=== PATIENT | male | born 1995 | race Caucasian/White ===

== ENCOUNTER 2016-07-22 09:55 | Emergency (ER) | payer OTHER ==
--- NOTE | 2016-07-22 10:38 | ED CLINICAL REPORT ---
Clinical Report - Physicians/Mid Levels [facility] [address] [place] [address] 07/22/2016 9:56 Patient: JACY SAGASTUME Time Seen: 10:15; initial patient contact. Arrived- By private vehicle. Historian- patient. HISTORY OF PRESENT ILLNESS Chief Complaint: CHEST PAIN. At its maximum, severity described as mild. When seen in the E.D., it was almost gone. Modifying factors- worsened by movement, cough and deep breaths. Not relieved by anything. It is described as pressure and it is described as located in the left costal cartilage area. No radiation. This started last night and is still present but is improving. The patient cannot recall the circumstances at the onset. No nausea, vomiting, difficulty breathing or diaphoresis. Similar symptoms previously: None. Recent medical care: Not recently seen/assessed. REVIEW OF SYSTEMS No fever, chills, cough, pedal edema or calf pain. No fainting episodes. All systems otherwise negative, except as recorded above. PAST HISTORY Depression. Asthma. SURGERIES: Tympanostomy Tubes. SOCIAL HISTORY Former smoker. Occasional alcohol use. History of drug use: marijuana. ADDITIONAL NOTES The nursing notes have been reviewed. PHYSICAL EXAM Vital Signs: 07/22/2016 10:02 BP: 123/68. HR: 76. RR: 18. O2 saturation: 100%. Temp: 97.7 F. Pain level now: 110. Have been reviewed as normal. Appearance: Alert. Oriented X3. No acute distress. ENT: Pharynx normal. CVS: Normal heart rate and rhythm. Heart sounds normal. Respiratory: No respiratory distress. Chest pain reproducible with palpation of the costochondral junction, with movement of the left arm and with deep breathing. Mild left upper and mid- costochondral tenderness. The tenderness is well-localized and reproduces the patient's subjective complaint. Breath sounds normal. Abdomen: Soft and nontender. Bowel sounds normal. Skin: Normal skin color. Neuro: Oriented X 3. LABS, X-RAYS, AND EKG EKG: EKG time: (1012). No acute process. No acute ischemia. Normal sinus rhythm. Rate: 80. Normal P waves. Normal ANNE. Normal QRS complex. Normal ST and T waves, QT and QTc. Prior EKG unavailable. The study has been interpreted contemporaneously by me. The study has been independently viewed by me. The EKG appears to be a good tracing. Interpretation time: 1012. PROGRESS AND PROCEDURES Disposition: Discharged home in good and improved condition. Condition: good. CLINICAL IMPRESSION Costochondritis .12 lead EKG performed. INSTRUCTIONS Do not work today. Prescription Medications: Diclofenac 50 mg tablets: take 1 tablet orally every 8 hours as needed for pain or stiffness. Dispense thirty (30). No refill. Follow-up: Follow up with your doctor in about four days. Call for an appointment. Screening today revealed the patient's blood pressure to be in the normal range. (Electronically signed by Matheus Blackburn Dr. 07/22/2016 14:13)
--- NOTE | 2016-07-22 10:38 | ED CLINICAL REPORT ---
Clinical Report - Physicians/Mid Levels [facility] [address] [place] [address] 07/22/2016 9:56 Patient: JACY SAGASTUME Time Seen: 10:15; initial patient contact. Arrived- By private vehicle. Historian- patient. HISTORY OF PRESENT ILLNESS Chief Complaint: CHEST PAIN. At its maximum, severity described as mild. When seen in the E.D., it was almost gone. Modifying factors- worsened by movement, cough and deep breaths. Not relieved by anything. It is described as pressure and it is described as located in the left costal cartilage area. No radiation. This started last night and is still present but is improving. The patient cannot recall the circumstances at the onset. No nausea, vomiting, difficulty breathing or diaphoresis. Similar symptoms previously: None. Recent medical care: Not recently seen/assessed. REVIEW OF SYSTEMS No fever, chills, cough, pedal edema or calf pain. No fainting episodes. All systems otherwise negative, except as recorded above. PAST HISTORY Depression. Asthma. SURGERIES: Tympanostomy Tubes. SOCIAL HISTORY Former smoker. Occasional alcohol use. History of drug use: marijuana. ADDITIONAL NOTES The nursing notes have been reviewed. PHYSICAL EXAM Vital Signs: 07/22/2016 10:02 BP: 123/68. HR: 76. RR: 18. O2 saturation: 100%. Temp: 97.7 F. Pain level now: 110. Have been reviewed as normal. Appearance: Alert. Oriented X3. No acute distress. ENT: Pharynx normal. CVS: Normal heart rate and rhythm. Heart sounds normal. Respiratory: No respiratory distress. Chest pain reproducible with palpation of the costochondral junction, with movement of the left arm and with deep breathing. Mild left upper and mid- costochondral tenderness. The tenderness is well-localized and reproduces the patient's subjective complaint. Breath sounds normal. Abdomen: Soft and nontender. Bowel sounds normal. Skin: Normal skin color. Neuro: Oriented X 3. LABS, X-RAYS, AND EKG EKG: EKG time: (1012). No acute process. No acute ischemia. Normal sinus rhythm. Rate: 80. Normal P waves. Normal ANNE. Normal QRS complex. Normal ST and T waves, QT and QTc. Prior EKG unavailable. The study has been interpreted contemporaneously by me. The study has been independently viewed by me. The EKG appears to be a good tracing. Interpretation time: 1012. PROGRESS AND PROCEDURES Disposition: Discharged home in good and improved condition. Condition: good. CLINICAL IMPRESSION Costochondritis .12 lead EKG performed. INSTRUCTIONS Do not work today. Prescription Medications: Diclofenac 50 mg tablets: take 1 tablet orally every 8 hours as needed for pain or stiffness. Dispense thirty (30). No refill. Follow-up: Follow up with your doctor in about four days. Call for an appointment. Screening today revealed the patient's blood pressure to be in the normal range. (Electronically signed by Matheus Blackburn Dr. 07/22/2016 14:13)
--- NOTE | 2016-07-22 10:38 | ED NURSING NOTES ---
Clinical Report - Nurses [facility] [address] [place] [address] 07/22/2016 9:56 Patient: JACY SAGASTUME TRIAGE Triage time 10:02. Acuity: LEVEL 3. Chief Complaint: CHEST PAIN. Alert. No acute distress. SUMI COMA SCORE: Sumi Coma Scale: 15- eyes open spontaneously (4); best verbal response- oriented x 4 (5); best motor response- obeys commands (6). --10:07 Amanda Ranegl R.N. 10:02 07/22/16. BP: 123/68. HR: 76. RR: 18. O2 saturation: 100%. Temp: 97.7 F (oral). Pain level now: 1/10. --10:07 Amanda Rangel R.N. Weight: 88.4 kg stated. Height/Length: 74 inches Per Patient. BMI: 25. Growth Chart Percentile: Weight: 89.7%. Height/Length: 94%. --10:05 Amanda Rangel R.N. Medications Intuniv Oral 3 mg, daily. --10:04 Amanda Rangel R.N. Medication/allergy information source: the patient. --10:07 Amanda Rangel R.N. Allergies Sulfa Antibiotics. --10:05 Amanda Rangel R.N. History Arrived by private vehicle. Historian: patient. Accompanied by family. Primary physician (Antonio). This started last night. Describes the quality as dull and (constant). Relates location as in the central chest area and left chest area. Notes pain level as 1/10 on arrival and 6/10 at maximum. Provoking / relieving factors: worsened by movement and deep breaths; relieved by rest. The patient has had nausea. No difficulty breathing or sweating episodes. SOCIAL HX: Former smoker. Occasional alcohol use. History of drug use: marijuana. FALL RISK ASSESSMENT: Fall risk assessment completed. No fall risk identified. FUNCTIONAL ASSESSMENT: Functional assessment: no impairments noted. LEARNING NEEDS ASSESSMENT: The learning needs assessment revealed no barriers. --10:07 Amanda Rangel R.N. PROBLEMS: Depression. Asthma. --10:06 Amanda Rangel R.N. ADDITIONAL SURGERIES: Tympanostomy Tubes. --10:06 Amanda Rangel R.N. Assessment GENERAL / NEURO / PSYCH: Alert. Oriented X 4. Appears in no acute distress. Patient appears calm and cooperative. RESPIRATORY: Respirations not labored. SKIN: Skin is warm and dry. --10:07 Amanda Rangel R.N. Interventions ID and allergy band on patient. To treatment room. --10:07 Amanda Rangel R.N. PHYSICAL ASSESSMENT 10:07 07/22/16. Ambulatory to room. Patient gowned. GENERAL / NEURO / PSYCH: Alert. Oriented X 4. Appears in no acute distress. RESPIRATORY: Respirations not labored. SKIN: Skin is warm and dry. --10:07 Amanda Rangel R.N. NURSING PROGRESS NOTES 10:07/22/16. food service worker, pulse oximeter and NIBP monitor placed on patient. Patient gowned. Head of bed elevated. Call light placed in reach. Side rails up x 1. Bed placed in lowest position. Brakes of bed on. --10:08 Amanda Rangel R.N. EKG time: (1012). EKG was ordered, performed by a magui and shown to the ED physician. --10:15 Butch Dumont, ROHAN Tech1 10:15 07/22/2016 Site #1 started via IV in the right hand with an 20g angiocath, with aseptic technique and good blood return; one attempt. Blood drawn: rainbow set. Labeled in the presence of the patient and sent to the lab. Saline lock flushed with 10 mL saline (done by Amanda CARRILLO). --11:37 Radha Valerio R.N. 11:41 07/22/2016 IV Saline Lock Drip IV Discontinued: bag #1 STOPPED upon discharge. Total amount infused: 0 mL (saline lock removed at 10:50, computer not allowing me to put correct time on entry). --11:41 Radha Valerio R.N. 10:50. ( first contact with pt. pt given dc instructions and saline lock dc'd no additional questions). --11:42 Radha Valerio R.N. DISPOSITION / DISCHARGE 10:55. Condition at departure: improved and stable. No learning barriers present. Discharge instructions provided and reviewed with the patient and parent. Reviewed medication(s) (diclofenac). Patient and parent verbalized understanding. Written instructions provided in Greek. The patient was discharged home and accompanied by parent. He left the Emergency Department ambulatory and via private vehicle. Parent driving. --11:36 Radha Valerio R.N. 10:55 07/22/16. BP: 104/64. HR: 74. RR: 18. O2 saturation: 100%. Temp: deferred. Pain level now: 03/08. --11:36 Radha Valerio R.N. Locked/Released at 07/22/2016 11:43 by Radha Valerio R.N.
--- NOTE | 2016-07-22 10:38 | ED NURSING NOTES ---
Clinical Report - Nurses [facility] [address] [place] [address] 07/22/2016 9:56 Patient: JACY SAGASTUME TRIAGE Triage time 10:02. Acuity: LEVEL 3. Chief Complaint: CHEST PAIN. Alert. No acute distress. SUMI COMA SCORE: Sumi Coma Scale: 15- eyes open spontaneously (4); best verbal response- oriented x 4 (5); best motor response- obeys commands (6). --10:07 Amanda Rangel R.N. 10:02 07/22/16. BP: 123/68. HR: 76. RR: 18. O2 saturation: 100%. Temp: 97.7 F (oral). Pain level now: 1/10. --10:07 Amanda Rangel R.N. Weight: 88.4 kg stated. Height/Length: 74 inches Per Patient. BMI: 25. Growth Chart Percentile: Weight: 89.7%. Height/Length: 94%. --10:05 Amanda Rangel R.N. Medications Intuniv Oral 3 mg, daily. --10:04 Amanda Rangel R.N. Medication/allergy information source: the patient. --10:07 Amanda Rangel R.N. Allergies Sulfa Antibiotics. --10:05 Amanda Rangel R.N. History Arrived by private vehicle. Historian: patient. Accompanied by family. Primary physician (Antonio). This started last night. Describes the quality as dull and (constant). Relates location as in the central chest area and left chest area. Notes pain level as 1/10 on arrival and 6/10 at maximum. Provoking / relieving factors: worsened by movement and deep breaths; relieved by rest. The patient has had nausea. No difficulty breathing or sweating episodes. SOCIAL HX: Former smoker. Occasional alcohol use. History of drug use: marijuana. FALL RISK ASSESSMENT: Fall risk assessment completed. No fall risk identified. FUNCTIONAL ASSESSMENT: Functional assessment: no impairments noted. LEARNING NEEDS ASSESSMENT: The learning needs assessment revealed no barriers. --10:07 Amanda Rangel R.N. PROBLEMS: Depression. Asthma. --10:06 Amanda Rangel R.N. ADDITIONAL SURGERIES: Tympanostomy Tubes. --10:06 Amanda Rangel R.N. Assessment GENERAL / NEURO / PSYCH: Alert. Oriented X 4. Appears in no acute distress. Patient appears calm and cooperative. RESPIRATORY: Respirations not labored. SKIN: Skin is warm and dry. --10:07 Amanda Rangel R.N. Interventions ID and allergy band on patient. To treatment room. --10:07 Amanda Rangel R.N. PHYSICAL ASSESSMENT 10:07 07/22/16. Ambulatory to room. Patient gowned. GENERAL / NEURO / PSYCH: Alert. Oriented X 4. Appears in no acute distress. RESPIRATORY: Respirations not labored. SKIN: Skin is warm and dry. --10:07 Amanda Rangel R.N. NURSING PROGRESS NOTES 10:07/22/16. monitoring analyst, pulse oximeter and NIBP monitor placed on patient. Patient gowned. Head of bed elevated. Call light placed in reach. Side rails up x 1. Bed placed in lowest position. Brakes of bed on. --10:08 Amanda Rangel R.N. EKG time: (1012). EKG was ordered, performed by a magui and shown to the ED physician. --10:15 Butch Dumont, ROHAN Tech1 10:15 07/22/2016 Site #1 started via IV in the right hand with an 20g angiocath, with aseptic technique and good blood return; one attempt. Blood drawn: rainbow set. Labeled in the presence of the patient and sent to the lab. Saline lock flushed with 10 mL saline (done by Amanda CARRILLO). --11:37 Radha Valerio R.N. 11:41 07/22/2016 IV Saline Lock Drip IV Discontinued: bag #1 STOPPED upon discharge. Total amount infused: 0 mL (saline lock removed at 10:50, computer not allowing me to put correct time on entry). --11:41 Radha Valerio R.N. 10:50. ( first contact with pt. pt given dc instructions and saline lock dc'd no additional questions). --11:42 Radha Valerio R.N. DISPOSITION / DISCHARGE 10:55. Condition at departure: improved and stable. No learning barriers present. Discharge instructions provided and reviewed with the patient and parent. Reviewed medication(s) (diclofenac). Patient and parent verbalized understanding. Written instructions provided in German. The patient was discharged home and accompanied by parent. He left the Emergency Department ambulatory and via private vehicle. Parent driving. --11:36 Radha Valerio R.N. 10:55 07/22/16. BP: 104/64. HR: 74. RR: 18. O2 saturation: 100%. Temp: deferred. Pain level now: 03/08. --11:36 Radha Valerio R.N. Locked/Released at 07/22/2016 11:43 by Radha Valerio R.N.
--- NOTE | 2016-07-22 14:13 | ED MED RECONCILIATION SUMMARY ---
Patient: JACY SAGASTUME Medication Reconciliation Report Located Within [facility] VisitID: [id number] [address] [place] [address] 20y, M Registration Date/Time: 07/22/2016 Weight: 88.4 kg Height/Length: 74 in. BMI: 25.0 ALLERGIES: Sulfa Antibiotics The patient's Home Medications are listed below: THE FOLLOWING MEDICATIONS NEED TO BE RECONCILED: Intuniv Oral 3 mg, daily The source(s) of the original Home Medication information: patient The following Medications were given to the patient in the Emergency Department: None. The following Medications were prescribed to the patient: Diclofenac 50 mg tablets: take 1 tablet orally every 8 hours as needed for pain or stiffness. Dispense thirty (30). No refill. -- Matheus Blackburn Dr.
--- NOTE | 2016-07-22 14:13 | ED MED RECONCILIATION SUMMARY ---
Patient: JACY SAGASTUME Medication Reconciliation Report [facility] VisitID: [id number] [address] [place] [address] 20y, M Registration Date/Time: 07/22/2016 Weight: 88.4 kg Height/Length: 74 in. BMI: 25.0 ALLERGIES: Sulfa Antibiotics The patient's Home Medications are listed below: THE FOLLOWING MEDICATIONS NEED TO BE RECONCILED: Intuniv Oral 3 mg, daily The source(s) of the original Home Medication information: patient The following Medications were given to the patient in the Emergency Department: None. The following Medications were prescribed to the patient: Diclofenac 50 mg tablets: take 1 tablet orally every 8 hours as needed for pain or stiffness. Dispense thirty (30). No refill. -- Matheus Blackburn Dr.
--- NOTE | 2016-07-22 14:13 | ED MAR SUMMARY ---
..... Medication Administration Record [facility] [address] [place], [place] [id number] Patient: JACY SAGASTUME Visit ID: [id number] 20y, M Weight: 88.4 kg Height/Length: 74 in BMI: 25 ALLERGIES: Sulfa Antibiotics
--- NOTE | 2016-07-22 14:13 | ED MAR SUMMARY ---
..... Medication Administration Record [facility] [address] [place], [place] [id number] Patient: JACY SAGASTUME Visit ID: [id number] 20y, M Weight: 88.4 kg Height/Length: 74 in BMI: 25 ALLERGIES: Sulfa Antibiotics
--- NOTE | 2016-07-22 14:13 | ED DISCHARGE INSTRUCTIONS ---
Patient: JACY SAGASTUME General Instructions [facility] VisitID: [id number] [place] [address] 20y, M Registration Date/Time: 07/22/2016 Costochondritis .12 lead EKG performed. INSTRUCTIONS Do not work today. Prescription Medications: Diclofenac 50 mg tablets: take 1 tablet orally every 8 hours as needed for pain or stiffness. Dispense thirty (30). No refill. Follow-up: Follow up with your doctor in about four days. Call for an appointment. Screening today revealed the patient's blood pressure to be in the normal range. ADDITIONAL INFORMATION Chest Wall Pain: Costochondritis The chest pain that you have had today is caused by Costochondritis. This condition is due to an inflammation of the cartilage joining the ribs to the breastbone. It is not caused by heart or lung problems. Although the exact cause for costochondritis is not known, it often occurs during times of emotional stress. It can be painful, but it is not dangerous. It usually disappears within one to two weeks, but may recur. Rarely, a more serious condition may cause symptoms similar to costochondritis; therefore, watch for the warning signs listed below. Home Care: If you feel that emotional stress is a cause of your condition, try to identify sources of that stress. It may not be obvious! Learn ways to deal with the stress in your life such as regular exercise, muscle relaxation, meditation, or simply taking time out for yourself. For more information about this, consult your doctor or go to a local bookstore and review books and tapes available on the subject of stress reduction. You may use acetaminophen (Tylenol) or ibuprofen (Motrin, Advil) to control pain, unless another pain medicine was prescribed. [ NOTE: If you have liver disease or ever had a stomach ulcer, talk with your doctor before using these medicines.] The use of heat (hot wet compress or heating pad) with or without local analgesic creams (Deep Heat Rub, Aquiles Batista) will be helpful to reduce pain. Follow Up with your doctor as directed or sooner if you do not start to improve within the next two days. Get Prompt Medical Attention if any of the following occur: A change in the type of pain: if it feels different, becomes more severe, lasts longer, or spreads into your shoulder, arm, neck, jaw or back Shortness of breath or increased pain with breathing Weakness, dizziness, or fainting Cough with dark colored sputum (phlegm) or blood Abdominal pain Dark red or black stools Fever of 100.4F (38C) or higher, or as directed by your healthcare provider You have been given the following additional information: Chest Wall Pain, Costochondritis Do not work today. (Electronically signed by Matheus Blackburn Dr. 07/22/2016 14:13)
--- NOTE | 2016-07-22 14:14 | ED ORDER SUMMARY ---
..... Patient: JACY SAGASTUME OrderSheet Located Within [facility] VisitID: [id number] [address] [place] [address] 20y, M Registration Date/Time: 07/22/2016 ORDER SHEET Weight: 88.4 kg (stated) Allergies: Sulfa Antibiotics GENERAL ORDERS: MEDICATION ORDERS: IV FLUIDS: IV Saline Lock (11:37 07/22/2016 DDean R.N. per protocol) (11:37 DDeawendy R.N.) ORDER SHEET NOTES: [Electronically signed by Radha Valerio R.N. (11:43 07/22/2016)] [Electronically signed by Matheus Blackburn Dr. (14:13 07/22/2016)] [Electronically locked/signed by Radha Valerio R.N. (11:43 07/22/2016)]
--- NOTE | 2016-07-22 14:14 | ED ORDER SUMMARY ---
..... Patient: JACY SAGASTUME OrderSheet [facility] VisitID: [id number] [address] [place] [address] 20y, M Registration Date/Time: 07/22/2016 ORDER SHEET Weight: 88.4 kg (stated) Allergies: Sulfa Antibiotics GENERAL ORDERS: MEDICATION ORDERS: IV FLUIDS: IV Saline Lock (11:37 07/22/2016 DDean R.N. per protocol) (11:37 DDeawendy R.N.) ORDER SHEET NOTES: [Electronically signed by Radha Valerio R.N. (11:43 07/22/2016)] [Electronically signed by Matheus Blackburn Dr. (14:13 07/22/2016)] [Electronically locked/signed by Radha Valerio R.N. (11:43 07/22/2016)]
== END 2016-07-22 11:42 | disposition home or self-care (01) ==
LOC: ED SRH 09:55
DX: M94.0 Chondrocostal junction syndrome [Tietze] (principal)